=== PATIENT | female | born 1975 | race Caucasian/White ===

== ENCOUNTER 2018-06-26 17:32 | Emergency (ER) | payer BC, OTHER ==
[~2018-06-26] VITALS: Ht 172.7 cm; Wt 125.2 kg
[~2018-06-26 17:32] MED LIST: HUMULIN R100 UNIT/1; Z.0.HUMULIN N100 UNI
--- OUTSIDE RECORDS SUMMARY | 2018-06-26 17:35 | XMS REPORT | Clinical Summary ---
Author Author [facility] Address Unknown Phone Unavailable Care Team Providers Care Merchandise Stocker Name Role Phone Asked, No Pcp PCP Unavailable Allergies Comments Active Allergy Reactions Severity Noted Date Adhesive Tape-Silicones Rash Low 05/06/2016 Oxaprozin 05/06/2016 Iodine 05/06/2016 Medications End Date Status Medication Sig Dispensed Refills Start Date 10/10/2017 cyclobenzaprine Take 1 tablet 15 tablet 0 (FLEXERIL) 10 mg tablet (10 mg total) 8 by mouth 2 (two) times a day as needed for muscle spasms for up to 30 days. 09/15/2017 LORAZepam (ATIVAN) 1 MG Take 0.5 15 tablet 0 tablet tablets (0.5 8 mg total) by mouth 3 (three) times a day as needed for anxiety for up to 5 days. Active Problems Not on file Encounters Care Team Description Date Type Specialty Zenia, Maribell Londono MD Tachycardia (Primary Dx); Anxiety 09/10/2017 Emergency Emergency Medicine after 06/25/2017 Social History Date Tobacco Use Types Packs/Day Years Used Never Smoker Alcohol Use Drinks/Week oz/Week Comments No Sex Assigned at Date Recorded Not on file Industry Job Start Date Occupation Not on file Not on file Not on file Travel End Travel History Travel Start No recent travel history available. Last Filed Vital Signs Time Taken Vital Sign Reading 09/10/2017 10:30 PM CDT Blood Pressure 123/69 09/10/2017 10:30 PM CDT Pulse 85 09/10/2017 10:30 PM CDT Temperature 37.1 C (98.7 F) 09/10/2017 10:30 PM CDT Respiratory Rate 17 09/10/2017 10:30 PM CDT Oxygen Saturation 95% - Inhaled Oxygen - Concentration 09/10/2017 3:51 PM CDT Weight 122 kg (268 lb) 09/10/2017 3:51 PM CDT Height 172.7 cm (5' 8") 09/10/2017 3:51 PM CDT Body Mass Index 40.75 Plan of Treatment Health Maintenance Due Date Last Done Comments CERVICAL CANCER SCREENING 1998 INFLUENZA VACCINE 09/26/2018 Procedures Comments Procedure Name Priority Date/Time Associated Diagnosis ECG ED PRELIMINARY Routine 09/10/2017 INTERPRETATION 9:52 PM CDT ECG 12-LEAD STAT 09/10/2017 9:43 PM CDT ECG ED PRELIMINARY Routine 09/10/2017 INTERPRETATION 8:32 PM CDT ZZESTIMATED GFR STAT 09/10/2017 4:43 PM CDT COMPREHENSIVE METABOLIC STAT 09/10/2017 PANEL 4:43 PM CDT HC COMPLETE BLD COUNT STAT 09/10/2017 W/AUTO DIFF 4:43 PM CDT B NATRIURETIC PEPTIDE STAT 09/10/2017 4:43 PM CDT TROPONIN, I-STAT Timed 09/10/2017 4:43 PM CDT TROPONIN, I-STAT STAT 09/10/2017 4:43 PM CDT XR CHEST 2 VW STAT 09/10/2017 4:32 PM CDT HCG QUALITATIVE, URINE STAT 09/10/2017 SCREEN 3:50 PM CDT URINALYSIS STAT 09/10/2017 3:50 PM CDT URINE CULTURE Routine 09/10/2017 3:50 PM CDT GRAM STAIN Routine 09/10/2017 3:50 PM CDT after 06/25/2017 Results * ECG ED Preliminary Interpretation - NOT AN ORDER (09/10/2017 9:52 PM CDT) Only the most recent of 2 results within the time period is included. Narrative Performed At Maribell Jasso MD 09/11/20171:35 AM ECG ED Preliminary Interpretation - Not an Order Performed by: MARIBELL JASSO Authorized by: MARIBELL JASSO ECG reviewed by ED Physician in the absence of a curb worker: yes Previous ECG: Previous ECG:Unavailable Interpretation: Interpretation: normal Rate: ECG rate:99 ECG rate assessment: normal Rhythm: Rhythm: sinus rhythm Ectopy: Ectopy: none QRS: QRS axis:Normal QRS intervals:Normal Conduction: Conduction: normal ST segments: ST segments:Normal T waves: T waves: normal * ECG 12 lead (09/10/2017 9:43 PM CDT) Ventricular rate 99 [facility] Atrial rate 99 [facility] DC interval 156 [facility] QRSD interval 100 [facility] QT interval 364 [facility] QTC interval 467 [facility] P axis 1 27 [facility] QRS axis 1 44 [facility] T wave axis 18 [facility] EKG impression Normal sinus rhythm-Normal [facility] M[facility] ECG-In automated comparison with ECG of 06-MAY-2016 05:58,-No significant change was found- Performing Organization Address City/[facility] Phone Number [facility] M[facility] [address] [place] [address] * Estimated GFR (09/10/2017 4:43 PM CDT) GFR Non Af Amer >90 mL/min/1.73 m2 DEPARTMENT OF PATHOLOGY AND GENOMIC MEDICINE, [facility] GFR Af Amer >90 mL/min/1.73 m2 DEPARTMENT OF Comment: PATHOLOGY AND Chronic kidney disease: <60 GENOMIC MEDICINE, mL/min/1.73m2 [facility] Kidney failure: <15 CENTER mL/min/1.73m2 The estimated GFR is calculated from the IDMS-traceable Modification of Diet in Renal Disease Equation. The accuracy of the calculation is poor when the creatinine is normal. Calculated values >90 mL/min/1.73m2 are not reported. This equation has not been validated in children (<18 years), women, the elderly (>70 years), or ethnic groups other than Caucasians and Americans. Specimen Plasma specimen Performing Organization Address City/State/Zipcode Phone Number [address], [place] [address] PATHOLOGY AND GENOMIC [address] [facility] * Troponin, I-Stat (09/10/2017 4:43 PM CDT) Only the most recent of 2 results within the time period is included. Troponin, I-Stat 0.02 0.00 - 0.08 ng/mL DEPARTMENT OF Comment: PATHOLOGY AND 0.30 - 1.49 GENOMIC MEDICINE, ng/mlMay [facility] indicate increased risk of CENTER acute coronary syndrome. >=1.5 ng/ml Consistent with acute myocardial infarction. The diagnostic value of a single normal or non-diagnostic result is questionable.Serial samples at 2-6 hour intervals are required to rule out acute myocardial injury. Specimen Plasma specimen Performing Organization Address City/State/Zipcode Phone Number [address] [address] PATH[address] * CBC with platelet and differential (09/10/2017 4:43 PM CDT) WBC 10.08 4.50 - 11.00 k/uL [facility] RBC 5.38 4.20 - 5.50 m/uL [facility] HGB 14.8 12.0 - 16.0 g/dL [facility] HCT 44.4 37.0 - 47.0 % [facility]OLOG[facility] MCV 82.5 82.0 - 100.0 fL [facility] MCH 27.5 27.0 - 34.0 pg [facility]OLOG[facility] MCHC 33.3 31.0 - 37.0 g/dL [facility]OLOGY [facility] RDW - SD 43.7 37.0 - 55.0 fL [facility] MPV 10.6 8.8 - 13.2 fL [facility] Platelet count 314 150 - 400 k/uL [facility] Neutrophils 71.1 (H) 39.0 - 69.0 % [facility] Lymphocytes 22.7 (L) 25.0 - 45.0 % [facility] Monocytes 5.0 0.0 - 10.0 % [facility] Eosinophils 1.1 0.0 - 5.0 % [facility] Basophils 0.1 0.0 - 1.0 % [facility] Specimen Blood Performing Organization Address City/[facility] [place] [address] PATHOLOGY AND GENOMIC [address] [place] [address] * B natriuretic peptide (09/10/2017 4:43 PM CDT) BNP 28 0 - 100 pg/mL [facility] PATHOLOGY AND GEN[facility] Specimen Blood Performing Organization Address City/[facility] [place] [address] PATHOLOGY AND GENOMIC [address] [place] [address] * Comprehensive metabolic panel (09/10/2017 4:43 PM CDT) Sodium 137 135 - 148 mEq/L [facility] Potassium 3.6 3.5 - 5.0 mEq/L [facility]OLOGY [facility] Chloride 110 (H) 99 - 109 mEq/L [facility]OLOG[facility] CO2 24 24 - 31 mEq/L [facility] Anion gap 3@ANIO (L) 7 - 15 mEq/L [facility] BUN 12 8 - 24 mg/dL [facility] Creatinine 0.7 0.5 - 1.5 mg/dL [facility] Glucose 137 (H) 65 - 99 mg/dL [facility] Calcium 8.6 8.6 - 10.6 mg/dL [facility] Protein 7.5 6.3 - 8.2 g/dL [facility] Albumin 4.1 3.5 - 5.0 g/dL [facility] A/G ratio 1.2 0.7 - 3.8 [facility] Alkaline phosphatase 89 30 - 115 U/L [facility] AST 14 (L) 15 - 46 U/L [facility] ALT 14 10 - 55 U/L [facility] Total bilirubin <0.2 (A) 0.2 - 1.2 mg/dL [facility] Specimen Plasma specimen Performing Organization Address City/[facility]ercout Phone Number [address] [address] PATHOLOGY AND GENOMIC [address] [place] [address] * XR Chest 2 Vw (09/10/2017 4:32 PM CDT) Narrative Performed At PROCEDURE:XR CHEST 2 VW RADIANT CLINICAL HISTORY:tachycardia COMPARISON:May 06, 2016 TECHNIQUE: 2 views of the chest were performed in the PA and lateral projection. FINDINGS: No active pleural, parenchymal, or mediastinal abnormality is noted. Noacute abnormality is demonstrated of the visualized bones of the thorax. IMPRESSION: Noacute abnormality in the chest. [facility]-[id number] Procedure Note Interface, Radiology Results Incoming - 09/10/2017 4:41 PM CDT PROCEDURE: XR CHEST 2 VW CLINICAL HISTORY: tachycardia COMPARISON: May 06, 2016 TECHNIQUE: 2 views of the chest were performed in the PA and lateral projection. FINDINGS: No active pleural, parenchymal, or mediastinal abnormality is noted. No acute abnormality is demonstrated of the visualized bones of the thorax. IMPRESSION: No acute abnormality in the chest. [id number] Performing Organization Address City/[facility]/Zipcode Phone Number [facility] [address] [place] [address] * Urinalysis (09/10/2017 3:50 PM CDT) Glucose, UA 3+ (A) Negative [facility] Bilirubin, UA Negative Negative [facility] Ketones, UA 2+ (A) Negative [facility] Specific gravity, UA 1.015 1.001 - 1.035 [facility] Blood, UA Negative Negative [facility] pH, UA 6.0 5.0 - 8.5 [facility] Protein, UA Negative Negative [facility] Urobilinogen, UA <2.0 <2.0 [facility] Nitrite, UA Negative Negative [facility] Leukocyte esterase, UA Negative Negative [facility] Color, UA Yellow [facility] Appearance, UA Clear [facility] Specimen Urine Performing Organization Address City/[facility]ercode Phone [place] [address] PATHOLOGY AND GENOMIC [address] [place] [address] * hCG qualitative, urine screen (09/10/2017 3:50 PM CDT) hCG qualitative, urine NegativeComment: Sensitivity DEPARTMENT OF of HCG test: 25 mIU/mL [facility] Specimen Urine Performing Organization Address City/[facility] [place] [address] PATHOLOGY AND GENOMIC [address] [facility] * Gram stain (09/10/2017 3:50 PM CDT) Gram stain result Rare WBC's [facility] DEPARTMENT OF Few Gram positive cocci in PATHOLOGY AND [facility] GENOMIC MEDICINE Few Budding yeast Moderate Gram positive rods Moderate Gram negative rods Comment: Specimen Information Specimen Source: Urine Specimen Site: Clean catch Specimen Urine Performing Organization Address City/State/Zipcode Phone Number [facility] DEPARTMENT OF [address] [place] [address] PATHOLOGY AND GENOMIC MEDICINE * Urine culture (09/10/2017 3:50 PM CDT) Urine culture isolate Streptococcus group B [facility] DEPARTMENT OF 10-1 cfu/ml PATHOLOGY AND (A) GENOMIC MEDICINE Comment: Specimen Information Specimen Source: Urine Specimen Site: Clean catch Specimen Urine Performing Organization Address City/State/Zipcode Phone Number [facility] DEPARTMENT OF [address] [place] [address] PATHOLOGY AND GENOMIC MEDICINE after 06/25/2017 Insurance Payer Benefit Subscriber ID Type Phone Address Plan / Group BCBS BCBS xxxxxxxxxxxx PPO CHOICE PPO/JETHRO OLIVER PPO Advance Directives Patient has advance care planning documents on file. For more information, demetrio crockett contact: Eugene Duque [address] [place] [address]
--- NOTE | 2018-06-26 18:55 | NUR ---
REPORT TO LUCITA BURKS
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
[2018-06-26] MEDS ORDERED: IBUPROFEN 600 MG TAB PO STA (19:46)
[2018-06-26] MEDS ORDERED: CYCLOBENZAPRINE10 MG PO (19:46)
[2018-06-26] MEDS ORDERED: METHOCARBAMOL750 MG PO (19:51)
[2018-06-26] MEDS ORDERED: IBUPROFEN 400 MG TAB PO ONE (20:00)
== END 2018-06-26 20:05 | disposition home or self-care (01) ==
LOC: FSED 17:32
DX: S29.011A Strain of muscle and tendon of front wall of thorax, initial encounter (principal); E11.9 Type 2 diabetes mellitus without complications; F41.9 Anxiety disorder, unspecified; Z79.4 Long term (current) use of insulin; Z98.84 Bariatric surgery status; V43.52XA Car driver injured in collision with other type car in traffic accident, initial encounter; Y93.89 Activity, other specified; Y92.488 Other paved roadways as the place of occurrence of the external cause; Z91.048 Other nonmedicinal substance allergy status; E11.65 Type 2 diabetes mellitus with hyperglycemia
CPT/HCPCS: 71101; 81025; 99283